=== PATIENT | female | born 1955 | race Caucasian/White ===

== ENCOUNTER 2018-01-31 15:41 | Emergency (ER) | payer MEDICARE, OTHER ==
[~2018-01-31] VITALS: Ht 154.9 cm; Wt 68.2 kg
[~2018-01-31 15:41] MED LIST: ASPI-825 PO; FLUO-191 PO; GLIP10 PO; LISI-662 PO; METF10002 PO; OLAN7.5T2 PO; SIMV-259 PO; SITA100 PO
[2018-01-31 15:58] LABS: GLUCOSE,POINT OF CARE 127 MG/DL (70-110)
[2018-01-31 16:37] LABS: BASOPHILS % (AUTO) 0.8 % (0.0-2.0); EOSINOPHILS % (AUTO) 1.2 % (1.0-6.0); HEMATOCRIT 31.8 % (36-46); LYMPHOCYTES % (AUTO) 30.8 % (22.0-44.0); MEAN CORPUSCULAR HEMOGLOBIN 29.8 pg (26.0-34.0); MEAN CORPUSCULAR HGB CONC 34.5 G/dL (31.0-37.0); MEAN CORPUSCULAR VOLUME 86 fL (80-100); MONOCYTES # (AUTO) 0.7 K/uL (0.1-1.0); MONOCYTES % (AUTO) 7.4 % (2.0-9.0); NEUTROPHILS # (AUTO) 5.7 K/uL (1.8-7.7); NEUTROPHILS % (AUTO) 59.8 % (40.0-70.0); PLATELET COUNT (AUTO) 391 K/uL (150-450); RED BLOOD CELL COUNT(AUTO) 3.68 MIL/uL (4.00-5.20)
[2018-01-31] MEDS ORDERED: BARIUM SULFATE 0.1% SUSPENSION 450 ML BOTTLE PO ONE (16:45)
[2018-01-31 16:46] LABS: BILIRUBIN,URINE NEGATIVE (NEGATIVE); GLUCOSE, URINE (UA) 100 mg/dL (NEGATIVE); KETONES,URINE NEGATIVE (NEGATIVE); LEUKOCYTE ESTERASE ,URINE NEGATIVE (NEGATIVE); NITRATE,URINE NEGATIVE (NEGATIVE); OCCULT BLOOD,URINE SMALL (NEGATIVE); PH,URINE 6.5 (5.0-8.0); PROTEIN,URINE SEE CONFIRM (NEGATIVE); UROBILINOGEN,URINE 0.2 mg/dL (<=1.0)
[2018-01-31 16:50] LABS: CALCIUM, TOTAL 8.9 mg/dL (8.8-10.5); CREATININE 1.17 mg/dL (0.60-1.30); POTASSIUM 3.6 mmol/L (3.5-5.1)
[2018-01-31 16:54] LABS: APPEARANCE,URINE HAZY (CLEAR); SULFOSALICYLIC ACID,URINE 4+ (Negative)
[2018-01-31 16:56] LABS: ALBUMIN 2.5 g/dL (3.4-5.0); BILIRUBIN,TOTAL 0.2 mg/dL (0.1-1.0); TOTAL PROTEIN, SERUM 6.7 g/dL (6.4-8.2)
[2018-01-31 16:56] LABS: BACTERIA,URINE Few /HPF (None Seen); SQUAMOUS EPITHELIAL CELL,UR Few /LPF (None Seen)
[2018-01-31] MEDS ORDERED: MORPHINE SULFATE 4 MG/ML SYRINGE IVP ONE (19:45)
[2018-01-31 20:26] VITALS: BP 187/80
== END 2018-01-31 20:28 | disposition home or self-care (01) ==
LOC: EMS 15:43
DX: N13.2 Hydronephrosis with renal and ureteral calculous obstruction (principal); N20.0 Calculus of kidney; K80.20 Calculus of gallbladder without cholecystitis without obstruction; R74.8 Abnormal levels of other serum enzymes; E11.9 Type 2 diabetes mellitus without complications; I10 Essential (primary) hypertension; Z79.82 Long term (current) use of aspirin
CPT/HCPCS: 36415; 74177; 80053; 81001; 82962; 83690; 84484; 85025; 93005; 96374; 99285; J2270

== ENCOUNTER 2018-02-09 15:49 | Emergency (ER) | payer MEDICARE, OTHER ==
[~2018-02-09] VITALS: Ht 170.2 cm; Wt 61.8 kg
[2018-02-09] MEDS ORDERED: OXYC10 PO (15:58)
[2018-02-09] MEDS ORDERED: ARIP2 PO (15:58)
[2018-02-09 16:07] LABS: GLUCOSE,POINT OF CARE 98 MG/DL (70-110)
[2018-02-09] MEDS ORDERED: SODIUM CHLORIDE 0.9% 1,000 ML IV ONE (16:15)
[2018-02-09 16:34] LABS: BASOPHILS % (AUTO) 0.8 % (0.0-2.0); EOSINOPHILS % (AUTO) 1.8 % (1.0-6.0); HEMATOCRIT 30.2 % (36-46); HEMOGLOBIN 10.4 g/dL (12.0-16.0); LYMPHOCYTES # (AUTO) 2.2 K/uL (1.0-4.8); LYMPHOCYTES % (AUTO) 24.7 % (22.0-44.0); MEAN CORPUSCULAR HGB CONC 34.4 G/dL (31.0-37.0); MEAN CORPUSCULAR VOLUME 87 fL (80-100); MONOCYTES # (AUTO) 0.8 K/uL (0.1-1.0); MONOCYTES % (AUTO) 8.8 % (2.0-9.0); NEUTROPHILS # (AUTO) 5.6 K/uL (1.8-7.7); NEUTROPHILS % (AUTO) 63.9 % (40.0-70.0); PLATELET COUNT (AUTO) 386 K/uL (150-450); RED BLOOD CELL COUNT(AUTO) 3.46 MIL/uL (4.00-5.20); RED CELL DISTRIBUTION WIDTH 13.4 % (11.5-14.5)
[2018-02-09 16:41] LABS: CALCIUM, TOTAL 8.8 mg/dL (8.8-10.5); CREATININE 1.46 mg/dL (0.60-1.30); POTASSIUM 3.3 mmol/L (3.5-5.1)
[2018-02-09 16:47] LABS: ALBUMIN 2.5 g/dL (3.4-5.0); BILIRUBIN,TOTAL 0.1 mg/dL (0.1-1.0); TOTAL PROTEIN, SERUM 6.5 g/dL (6.4-8.2)
[2018-02-09 18:34] VITALS: BP 171/81
== END 2018-02-09 19:02 | disposition home or self-care (01) ==
LOC: EMS 15:50
DX: R42 Dizziness and giddiness (principal); E11.9 Type 2 diabetes mellitus without complications; F20.9 Schizophrenia, unspecified; I10 Essential (primary) hypertension; M19.90 Unspecified osteoarthritis, unspecified site; Z79.82 Long term (current) use of aspirin; Z79.84 Long term (current) use of oral hypoglycemic drugs; Z90.710 Acquired absence of both cervix and uterus
CPT/HCPCS: 82962; 96360; 99284; J7030

== ENCOUNTER 2018-07-07 08:19 | Emergency (ER) | payer MEDICARE, OTHER ==
[~2018-07-07] VITALS: Ht 154.9 cm; Wt 68.2 kg
[~2018-07-07 08:19] MED LIST changes: +ARIP2 PO; +METF-446 PO; -METF10002 PO; +OXYC10 PO
[2018-07-07 08:34] LABS: GLUCOSE,POINT OF CARE 215 MG/DL (70-110)
[2018-07-07] MEDS ORDERED: LISINOPRIL 10 MG TABLET PO ONE (10:00)
[2018-07-07] MEDS ORDERED: CloNIDine HCL 0.2 MG TABLET PO ONE (10:00)
[2018-07-07 11:04] LABS: GLUCOSE,POINT OF CARE 175 MG/DL (70-110)
[2018-07-07] MEDS ORDERED: OxyCODONE HCL/ACETAMINOPHEN 10-325 MG TABLET PO ONE (11:30)
[2018-07-07 12:37] VITALS: BP 145/77
== END 2018-07-07 12:43 | disposition home or self-care (01) ==
LOC: EMS 08:20
DX: M17.11 Unilateral primary osteoarthritis, right knee (principal); G25.81 Restless legs syndrome; E11.42 Type 2 diabetes mellitus with diabetic polyneuropathy; I10 Essential (primary) hypertension; F20.9 Schizophrenia, unspecified; Z79.82 Long term (current) use of aspirin
CPT/HCPCS: 99284

== ENCOUNTER 2018-08-24 08:23 | Emergency (ER) | payer MEDICARE, OTHER ==
[~2018-08-24] VITALS: Ht 154.9 cm; Wt 68.2 kg
[2018-08-24] MEDS ORDERED: DiphenhydrAMINE HCL 50 MG/ML VIAL IVP ONE (08:45)
[2018-08-24 09:01] LABS: BASOPHILS % (AUTO) 0.9 % (0.0-2.0); EOSINOPHILS % (AUTO) 1.3 % (1.0-6.0); HEMATOCRIT 29.2 % (36-46); HEMOGLOBIN 10.5 g/dL (12.0-16.0); LYMPHOCYTES # (AUTO) 2.3 K/uL (1.0-4.8); LYMPHOCYTES % (AUTO) 24.4 % (22.0-44.0); MEAN CORPUSCULAR HEMOGLOBIN 31.2 pg (26.0-34.0); MEAN CORPUSCULAR HGB CONC 35.9 G/dL (31.0-37.0); MEAN CORPUSCULAR VOLUME 87 fL (80-100); MONOCYTES # (AUTO) 0.7 K/uL (0.1-1.0); MONOCYTES % (AUTO) 7.6 % (2.0-9.0); NEUTROPHILS # (AUTO) 6.1 K/uL (1.8-7.7); NEUTROPHILS % (AUTO) 65.8 % (40.0-70.0); PLATELET COUNT (AUTO) 430 K/uL (150-450); RED BLOOD CELL COUNT(AUTO) 3.37 MIL/uL (4.00-5.20); RED CELL DISTRIBUTION WIDTH 13.3 % (11.5-14.5)
[2018-08-24 09:09] LABS: CALCIUM, TOTAL 8.1 mg/dL (8.8-10.5); CREATININE 1.5 mg/dL (0.60-1.30); POTASSIUM 3.5 mmol/L (3.5-5.1)
[2018-08-24 09:15] LABS: ALBUMIN 1.7 g/dL (3.4-5.0); BILIRUBIN,TOTAL 0.2 mg/dL (0.1-1.0); TOTAL PROTEIN, SERUM 5.9 g/dL (6.4-8.2)
[2018-08-24] MEDS ORDERED: AmLODIPine BESYLATE 5 MG TABLET PO ONE (10:30)
[2018-08-24 10:50] VITALS: BP 172/93
== END 2018-08-24 11:09 | disposition home or self-care (01) ==
LOC: EMS 08:24
DX: H02.841 Edema of right upper eyelid (principal); H02.842 Edema of right lower eyelid; H02.844 Edema of left upper eyelid; H02.845 Edema of left lower eyelid; I10 Essential (primary) hypertension; E11.9 Type 2 diabetes mellitus without complications; F20.9 Schizophrenia, unspecified
CPT/HCPCS: 36415; 80053; 82962; 83880; 84484; 85025; 96374; 99284; J1200

== ENCOUNTER 2018-09-18 12:49 | Emergency (ER) | payer MEDICARE, OTHER ==
[~2018-09-18] VITALS: Ht 154.9 cm; Wt 72.7 kg
[~2018-09-18 12:49] MED LIST changes: -METF-446 PO
[2018-09-18 13:39] LABS: GLUCOSE,POINT OF CARE 99 MG/DL (70-110)
[2018-09-18 16:13] LABS: EOSINOPHILS % (AUTO) 1.7 % (1.0-6.0); HEMATOCRIT 27.2 % (36-46); HEMOGLOBIN 9.4 g/dL (12.0-16.0); LYMPHOCYTES % (AUTO) 25.3 % (22.0-44.0); MEAN CORPUSCULAR HEMOGLOBIN 30.4 pg (26.0-34.0); MEAN CORPUSCULAR HGB CONC 34.5 G/dL (31.0-37.0); MEAN CORPUSCULAR VOLUME 88 fL (80-100); MONOCYTES # (AUTO) 0.9 K/uL (0.1-1.0); MONOCYTES % (AUTO) 11.3 % (2.0-9.0); NEUTROPHILS # (AUTO) 4.9 K/uL (1.8-7.7); NEUTROPHILS % (AUTO) 60.7 % (40.0-70.0); PLATELET COUNT (AUTO) 408 K/uL (150-450); RED BLOOD CELL COUNT(AUTO) 3.08 MIL/uL (4.00-5.20); RED CELL DISTRIBUTION WIDTH 13.6 % (11.5-14.5)
[2018-09-18 16:31] LABS: CALCIUM, TOTAL 8.3 mg/dL (8.8-10.5); CREATININE 1.59 mg/dL (0.60-1.30); POTASSIUM 4.1 mmol/L (3.5-5.1)
[2018-09-18 16:36] LABS: ALBUMIN 1.7 g/dL (3.4-5.0); BILIRUBIN,TOTAL 0.1 mg/dL (0.1-1.0); TOTAL PROTEIN, SERUM 5.9 g/dL (6.4-8.2)
[2018-09-18] MEDS ORDERED: ACETAMINOPHEN 325 MG TABLET PO ONE (18:00)
[2018-09-18 19:07] VITALS: BP 145/80
== END 2018-09-18 19:11 | disposition home or self-care (01) ==
LOC: EMS 12:51
DX: I99.8 Other disorder of circulatory system (principal); R60.0 Localized edema; I10 Essential (primary) hypertension; E11.9 Type 2 diabetes mellitus without complications; F20.9 Schizophrenia, unspecified; Z79.82 Long term (current) use of aspirin
CPT/HCPCS: 93005; 93970

== ENCOUNTER 2018-09-30 01:56 | Emergency (ER) | payer OTHER ==
[~2018-09-30] VITALS: Ht 167.6 cm; Wt 95.5 kg
[2018-09-30 02:09] LABS: GLUCOSE,POINT OF CARE 192 MG/DL (70-110)
[2018-09-30] MEDS ORDERED: PIOG15TA6 PO (02:18)
[2018-09-30] MEDS ORDERED: ATOR20TA86 PO (02:18)
[2018-09-30] MEDS ORDERED: ARIP10TA8 PO (02:18)
[2018-09-30] MEDS ORDERED: OMEP20 PO (02:18)
[2018-09-30] MEDS ORDERED: AMLO-511 PO (02:18)
[2018-09-30] MEDS ORDERED: MORPHINE SULFATE 4 MG/ML SYRINGE IM ONE (02:45)
[2018-09-30 04:20] VITALS: BP 134/62
== END 2018-09-30 04:25 | disposition home or self-care (01) ==
LOC: EMS 01:57
DX: S70.12XA Contusion of left thigh, initial encounter (principal); M19.90 Unspecified osteoarthritis, unspecified site; E11.9 Type 2 diabetes mellitus without complications; I10 Essential (primary) hypertension; F20.9 Schizophrenia, unspecified; Z90.710 Acquired absence of both cervix and uterus; Z79.82 Long term (current) use of aspirin; Z79.899 Other long term (current) drug therapy; W19.XXXA Unspecified fall, initial encounter; Y93.89 Activity, other specified; Y92.89 Other specified places as the place of occurrence of the external cause; Y99.8 Other external cause status
CPT/HCPCS: 73552; 82962; 96372; 99283; J2270

== ENCOUNTER 2021-05-09 00:07 | Emergency (ER) | payer MEDICARE, OTHER ==
[~2021-05-09] VITALS: Ht 154.9 cm; Wt 84.1 kg
[~2021-05-09 00:07] MED LIST changes: +AMLO-257 PO; +ARIP10TA38 PO; -ARIP2 PO; +ATOR20TA86 PO; -FLUO-191 PO; -LISI-662 PO; +LISI-894 PO; -OLAN7.5T2 PO; +OMEP20 PO; -OXYC10 PO; +PIOG15TA6 PO; -SIMV-259 PO; -SITA100 PO
[2021-05-09] MEDS ORDERED: ACETAMINOPHEN 500 MG TABLET PO ONE (00:45)
[2021-05-09 01:03] VITALS: BP 127/69
== END 2021-05-09 01:24 | disposition home or self-care (01) ==
LOC: EMS 00:09
DX: M79.671 Pain in right foot (principal); M79.672 Pain in left foot; G89.29 Other chronic pain; E11.9 Type 2 diabetes mellitus without complications; I10 Essential (primary) hypertension; F20.9 Schizophrenia, unspecified; Z90.710 Acquired absence of both cervix and uterus; Z79.899 Other long term (current) drug therapy; Z79.82 Long term (current) use of aspirin
CPT/HCPCS: 99283

== ENCOUNTER 2022-10-01 10:38 | Inpatient (IN) | payer MEDICARE, MEDICAID ==
[~2022-10-01] VITALS: Ht 157.5 cm; Wt 72.6 kg
[2022-10-01] VITALS (24 sets, daily range): BP systolic 102–135; BP diastolic 52–65
[~2022-10-01 10:38] MED LIST changes: -GLIP10 PO; +GLIP10TA10 PO
[2022-10-01] MEDS ORDERED: NIFE-129 PO (10:50)
[2022-10-01] MEDS ORDERED: CHOL25TA4 PO (10:50)
[2022-10-01] MEDS ORDERED: FLUO20CA36 PO (10:50)
[2022-10-01] MEDS ORDERED: BUME1TAB34 PO (10:50)
[2022-10-01] MEDS ORDERED: PANT-31 PO (10:50)
[2022-10-01] MEDS ORDERED: FERR325T27 PO (10:50)
[2022-10-01] MEDS ORDERED: CLOP75TA60 PO (10:50)
[2022-10-01] MEDS ORDERED: GABA-1181 PO (10:52)
[2022-10-01] MEDS ORDERED: SEVE0.8P6 PO (10:52)
[2022-10-01] MEDS ORDERED: ASPI-1444 PO (10:58)
[2022-10-01] MEDS ORDERED: SEVE800T27 PO (10:58)
[2022-10-01] MEDS ORDERED: ATOR40TA28 PO (10:58)
[2022-10-01] MEDS ORDERED: FOLI0.8T2 PO (10:58)
[2022-10-01] MEDS ORDERED: KETO-108 OU (10:58)
[2022-10-01] MEDS ORDERED: ATORVASTATIN CALCIUM 40 MG TABLET PO ONE (11:00)
[2022-10-01] MEDS ORDERED: HEPARIN SODIUM,PORCINE 5,000 UNITS/ML VIAL IVP ONE (11:00)
[2022-10-01 11:04] LABS: BASOPHILS % (AUTO) 0.9 % (0.0-2.0); EOSINOPHILS % (AUTO) 0.8 % (1.0-6.0); HEMATOCRIT 30.9 % (36-46); HEMOGLOBIN 10.1 g/dL (12.0-16.0); LYMPHOCYTES # (AUTO) 1.1 K/uL (1.0-4.8); LYMPHOCYTES % (AUTO) 10.4 % (22.0-44.0); MEAN CORPUSCULAR HEMOGLOBIN 31.4 pg (26.0-34.0); MEAN CORPUSCULAR HGB CONC 32.7 G/dL (31.0-37.0); MEAN CORPUSCULAR VOLUME 96 fL (80-100); MONOCYTES # (AUTO) 1.1 K/uL (0.1-1.0); MONOCYTES % (AUTO) 10.4 % (2.0-9.0); NEUTROPHILS # (AUTO) 8.3 K/uL (1.8-7.7); NEUTROPHILS % (AUTO) 77.5 % (40.0-70.0); PLATELET COUNT (AUTO) 374 K/uL (150-450); RED BLOOD CELL COUNT(AUTO) 3.22 MIL/uL (4.00-5.20); RED CELL DISTRIBUTION WIDTH 17.7 % (11.5-14.5)
[2022-10-01] MEDS ORDERED: FentaNYL CITRATE PF 100 MCG/2 ML VIAL ONE (11:15)
[2022-10-01] MEDS ORDERED: MIDAZOLAM HCL 2 MG/2 ML VIAL ONE (11:16)
[2022-10-01] MEDS ORDERED: HEPARIN SODIUM 1000 UNITS/NS 1,000 ML ONE (11:16)
[2022-10-01] MEDS ORDERED: LIDOCAINE/PF 1% 30 ML VIAL ONE (11:16)
[2022-10-01] MEDS ORDERED: IOHEXOL 300 MG/ML 100 ML VIAL ONE (11:16)
[2022-10-01] MEDS ORDERED: SODIUM BICARBONATE 50 MEQ/50 ML VIAL ONE (11:16)
[2022-10-01 11:27] LABS: CALCIUM, TOTAL 8.6 mg/dL (8.8-10.5); CREATININE 8.65 mg/dL (0.60-1.30); POTASSIUM 4.9 mmol/L (3.5-5.1)
[2022-10-01 11:33] LABS: ALBUMIN 2.4 g/dL (3.4-5.0); BILIRUBIN,TOTAL 0.3 mg/dL (0.1-1.0)
[2022-10-01] MEDS ORDERED: SODIUM CHLORIDE 0.9% 500 ML IV ONE (11:45)
[2022-10-01] MEDS ORDERED: LIDOCAINE 1% 30 ML/SOD BICARB 8.4% 4 ML SQ ONE (11:45)
[2022-10-01] MEDS ORDERED: IOHEXOL 300 MG/ML 100 ML VIAL IARTER ONE (11:45)
[2022-10-01] MEDS ORDERED: HEPARIN SODIUM 1000 UNITS/NS 1,000 ML IARTER ONE (11:45)
[2022-10-01] MEDS ORDERED: PNEUMOCOCCAL VACCINE POLYVALENT 0.5 ML VIAL [PPSV23] IM. ONE (15:45)
[2022-10-01] MEDS ORDERED: ZOLPIDEM TARTRATE 5 MG TABLET PO PRN (15:45)
[2022-10-01] MEDS ORDERED: DEXTROSE 50%-WATER 25 GM/50 ML SYRINGE IVP PRN (15:45)
[2022-10-01] MEDS ORDERED: MAGNESIUM HYDROXIDE SUSPENSION 30 ML UDCUP PO PRN (15:45)
[2022-10-01] MEDS ORDERED: MORPHINE SULFATE 2 MG/ML SYRINGE IVP PRN (15:45)
[2022-10-01] MEDS ORDERED: ONDANSETRON HCL 4 MG/2 ML VIAL IVP PRN (15:45)
[2022-10-01] MEDS ORDERED: ACETAMINOPHEN 325 MG TABLET PO PRN (15:45)
[2022-10-01] MEDS ORDERED: BISACODYL 10 MG RECTAL RECTAL SUPPOSITORY PR PRN (15:45)
[2022-10-01 16:09] LABS: COVID AG,FIA SOURCE NASAL SWAB
[2022-10-01] MEDS: HYDROCODONE/ACETAMINOPHEN 5-325 MG TABLET PO PRN (16:45)
[2022-10-01] MEDS: HEPARIN SODIUM,PORCINE 5,000 UNITS/ML VIAL SQ SCH (16:45)
[2022-10-01] MEDS ORDERED: NIFEdipine 60 MG ER TABLET PO SCH (21:00)
[2022-10-01] MEDS: DOCUSATE SODIUM 100 MG CAPSULE PO SCH (21:24)
[2022-10-01] MEDS: INSULIN LISPRO 100 UNITS/ML SQ PRN (21:25)
[2022-10-02] VITALS (18 sets, daily range): BP systolic 90–145; BP diastolic 40–84
[2022-10-02 06:24] LABS: BASOPHILS % (AUTO) 0.6 % (0.0-2.0); EOSINOPHILS % (AUTO) 1.2 % (1.0-6.0); HEMATOCRIT 27.2 % (36-46); HEMOGLOBIN 8.9 g/dL (12.0-16.0); LYMPHOCYTES # (AUTO) 1.2 K/uL (1.0-4.8); LYMPHOCYTES % (AUTO) 11.7 % (22.0-44.0); MEAN CORPUSCULAR HEMOGLOBIN 31.4 pg (26.0-34.0); MEAN CORPUSCULAR HGB CONC 32.6 G/dL (31.0-37.0); MEAN CORPUSCULAR VOLUME 97 fL (80-100); MONOCYTES # (AUTO) 1.5 K/uL (0.1-1.0); MONOCYTES % (AUTO) 14.2 % (2.0-9.0); NEUTROPHILS # (AUTO) 7.5 K/uL (1.8-7.7); NEUTROPHILS % (AUTO) 72.3 % (40.0-70.0); PLATELET COUNT (AUTO) 362 K/uL (150-450); RED BLOOD CELL COUNT(AUTO) 2.82 MIL/uL (4.00-5.20); RED CELL DISTRIBUTION WIDTH 17.5 % (11.5-14.5)
[2022-10-02 06:36] LABS: CALCIUM, TOTAL 8.3 mg/dL (8.8-10.5); CREATININE 10.2 mg/dL (0.60-1.30); PHOSPHORUS 6.5 mg/dL (2.5-4.9); POTASSIUM 4.9 mmol/L (3.5-5.1)
[2022-10-02] MEDS: INSULIN LISPRO 100 UNITS/ML SQ PRN ×3 (06:36→21:16)
[2022-10-02 07:46] LABS: GLUCOMETER DEV NAME(LOC) 5S.1B; GLUCOSE,POINT OF CARE 207 MG/DL (70-110)
[2022-10-02] MEDS: METOPROLOL SUCCINATE 25 MG ER TABLET PO SCH (09:00)
[2022-10-02] MEDS ORDERED: EPOETIN ALFA 10,000 UNITS/ML 2 ML VIAL SQ SCH (09:00)
[2022-10-02] MEDS: LISINOPRIL 20 MG TABLET PO SCH (09:00)
[2022-10-02] MEDS: ATORVASTATIN CALCIUM 40 MG TABLET PO SCH (09:00)
[2022-10-02] MEDS: HEPARIN SODIUM,PORCINE 5,000 UNITS/ML VIAL SQ SCH ×2 (09:13)
[2022-10-02] MEDS: DOCUSATE SODIUM 100 MG CAPSULE PO SCH ×2 (09:16→21:07)
[2022-10-02] MEDS: FOLIC ACID/VIT B COMPLEX AND C TABLET PO SCH (09:16)
[2022-10-02] MEDS: PANTOPRAZOLE SODIUM 40 MG DR TABLET PO SCH (09:16)
[2022-10-02] MEDS: FERROUS SULFATE 325 MG EC TABLET PO SCH (09:17)
[2022-10-02] MEDS: ASPIRIN 81 MG DR TABLET PO SCH (09:17)
[2022-10-02] MEDS ORDERED: SEVE800T17 PO (10:56)
[2022-10-02] MEDS ORDERED: LISI-894 PO (10:56)
[2022-10-02] MEDS ORDERED: METO25XL PO (10:56)
[2022-10-02 12:36] LABS: GLUCOMETER DEV NAME(LOC) 5S.1B; GLUCOSE,POINT OF CARE 314 MG/DL (70-110)
[2022-10-02] MEDS: SEVELAMER CARBONATE 800 MG TABLET PO SCH ×2 (13:52→21:07)
[2022-10-02 17:19] LABS: CALCIUM, TOTAL 8.6 mg/dL (8.8-10.5); CREATININE 4.27 mg/dL (0.60-1.30); POTASSIUM 3.3 mmol/L (3.5-5.1)
[2022-10-02 17:21] LABS: C-REACTIVE PROTEIN QUANT 22.06 mg/dL (0.00-0.30)
[2022-10-02] MEDS ORDERED: IBUPROFEN 400 MG TABLET PO SCH (21:00)
[2022-10-02] MEDS: IBUPROFEN 600 MG TABLET PO SCH (21:07)
[2022-10-02 21:11] LABS: GLUCOMETER DEV NAME(LOC) 5S.1B; GLUCOSE,POINT OF CARE 140 MG/DL (70-110)
[2022-10-02] MEDS: HYDROCODONE/ACETAMINOPHEN 5-325 MG TABLET PO PRN (21:15)
[2022-10-03 03:48] VITALS: BP 121/71
[2022-10-03 05:53] LABS: BASOPHILS % (AUTO) 0.9 % (0.0-2.0); EOSINOPHILS % (AUTO) 2.7 % (1.0-6.0); HEMATOCRIT 25.1 % (36-46); HEMOGLOBIN 8.5 g/dL (12.0-16.0); LYMPHOCYTES # (AUTO) 1.4 K/uL (1.0-4.8); LYMPHOCYTES % (AUTO) 11.1 % (22.0-44.0); MEAN CORPUSCULAR HGB CONC 33.7 G/dL (31.0-37.0); MEAN CORPUSCULAR VOLUME 95 fL (80-100); MONOCYTES # (AUTO) 1.5 K/uL (0.1-1.0); MONOCYTES % (AUTO) 11.6 % (2.0-9.0); NEUTROPHILS # (AUTO) 9.6 K/uL (1.8-7.7); NEUTROPHILS % (AUTO) 73.7 % (40.0-70.0); PLATELET COUNT (AUTO) 410 K/uL (150-450); RED BLOOD CELL COUNT(AUTO) 2.64 MIL/uL (4.00-5.20); RED CELL DISTRIBUTION WIDTH 17.7 % (11.5-14.5)
[2022-10-03 06:02] LABS: CALCIUM, TOTAL 9.1 mg/dL (8.8-10.5); CREATININE 5.44 mg/dL (0.60-1.30); POTASSIUM 4.4 mmol/L (3.5-5.1)
[2022-10-03] MEDS: INSULIN LISPRO 100 UNITS/ML SQ PRN ×2 (06:04→11:50)
[2022-10-03 06:21] LABS: GLUCOMETER DEV NAME(LOC) 5S.1B; GLUCOSE,POINT OF CARE 156 MG/DL (70-110)
[2022-10-03 07:39] LABS: PLATELET MORPHOLOGY COMMENT LARGE PLTS PRESENT
[2022-10-03 07:50] VITALS: BP 114/63
[2022-10-03] MEDS: LISINOPRIL 20 MG TABLET PO SCH (08:44)
[2022-10-03] MEDS: FOLIC ACID/VIT B COMPLEX AND C TABLET PO SCH (08:44)
[2022-10-03] MEDS: ASPIRIN 81 MG DR TABLET PO SCH (08:44)
[2022-10-03] MEDS: ATORVASTATIN CALCIUM 40 MG TABLET PO SCH (08:44)
[2022-10-03] MEDS: IBUPROFEN 600 MG TABLET PO SCH (08:45)
[2022-10-03] MEDS: SEVELAMER CARBONATE 800 MG TABLET PO SCH ×2 (08:45→11:50)
[2022-10-03] MEDS: HEPARIN SODIUM,PORCINE 5,000 UNITS/ML VIAL SQ SCH ×2 (08:45)
[2022-10-03] MEDS: DOCUSATE SODIUM 100 MG CAPSULE PO SCH (08:45)
[2022-10-03] MEDS: FERROUS SULFATE 325 MG EC TABLET PO SCH (08:45)
[2022-10-03] MEDS: PANTOPRAZOLE SODIUM 40 MG DR TABLET PO SCH (08:45)
[2022-10-03] MEDS: METOPROLOL SUCCINATE 25 MG ER TABLET PO SCH (08:45)
[2022-10-03] MEDS ORDERED: COLCHICINE 0.6 MG TABLET PO ONE (10:15)
[2022-10-03 11:15] VITALS: BP 132/55
== END 2022-10-03 12:45 | disposition home or self-care (01) | DRG 286 ==
LOC: EMS 10:52 → 5S 13:18
PROVIDERS: ADMIT Internal Medicine; ATTEND Internal Medicine
PROC: 4A023N7 Measurement of Cardiac Sampling and Pressure, Left Heart, Percutaneous Approach (ICD-10-PCS; principal; 2022-10-01)
PROC: B2111ZZ Fluoroscopy of Multiple Coronary Arteries using Low Osmolar Contrast (ICD-10-PCS; 2022-10-01)
PROC: B41F1ZZ Fluoroscopy of Right Lower Extremity Arteries using Low Osmolar Contrast (ICD-10-PCS; 2022-10-01)
PROC: 5A1D70Z Performance of Urinary Filtration, Intermittent, Less than 6 Hours Per Day (ICD-10-PCS; 2022-10-03)
DX: I31.9 Disease of pericardium, unspecified (principal); N18.6 End stage renal disease; E87.1 Hypo-osmolality and hyponatremia; I12.0 Hypertensive chronic kidney disease with stage 5 chronic kidney disease or end stage renal disease; N25.81 Secondary hyperparathyroidism of renal origin; E11.22 Type 2 diabetes mellitus with diabetic chronic kidney disease; E11.65 Type 2 diabetes mellitus with hyperglycemia; E78.5 Hyperlipidemia, unspecified; D63.1 Anemia in chronic kidney disease; F25.9 Schizoaffective disorder, unspecified; Z99.2 Dependence on renal dialysis; Z86.16 Personal history of COVID-19; Z79.82 Long term (current) use of aspirin; Z79.899 Other long term (current) drug therapy; Z90.710 Acquired absence of both cervix and uterus
CPT/HCPCS: 71045; 80048; 80053; 82962; 83880; 84100; 84484; 85025; 85730; 86140; 87340; 90935; 93005; 93306; 99291; J0885; J1644; J2250; J3010; J3490; J7040; Q9967; 36415-L1; 36415-TC